=== PATIENT | female | born 1985 | race Caucasian/White ===

== ENCOUNTER 2025-04-02 08:46 | Emergency (ER) | payer OTHER, SELFPAY ==
[2025-04-02 09:49] LABS: Hematocrit 38.0 % (37.0-47.0); Hemoglobin 12.8 g/dL (12.0-16.0); Mean Corp Hgb Conc. 33.7 g/dL (33.0-37.0); Mean Corpuscular Volume 90.7 fL (81.0-99.0); Nucleated Red Blood Cells % 0 %; Platelet Count 267 10^3/uL (130-400); Red Cell Dist. Width 12.6 % (11.5-14.5); Urine Character Clear (Clear)
[2025-04-02 09:57] LABS: Urine Red Blood Cell 0-2 /HPF (0-2); Urine Squamous Cell >30 /LPF (Few); Urine White Cell 0-2 /HPF (0-5)
[2025-04-02 10:00] VITALS: BP 134/84
[2025-04-02] MEDS: NSS 1000 IV (10:20)
[2025-04-02] MEDS: TORADOL 15 MG IV (10:27)
[2025-04-02] MEDS: XANAX 0.5 MG PO (10:27)
--- NOTE | 2025-04-02 10:42 | ED.GENMED ---
History of Present Illness
<Laurita Montelongo PA-C - Last Filed: 04/02/25 14:33>
General
Chief Complaint: Flank Pain
Source: patient
Exam Limitations: none
Time Seen by Provider: 04/02/25 09:26
Nursing documentation reviewed up to this point in time: agreed with
History of Present Illness
History of Present Illness:
see MDM
Phy Exam
<Laurita Montelongo PA-C - Last Filed: 04/02/25 14:33>
Physical Exam
Physical Exam:
see MDM
Course
<Laurita Montelongo PA-C - Last Filed: 04/02/25 14:33>
Orders/Labs/Results
Orders:
Orders
04/02/25 09:33
Test Result ONCE
04/02/25 09:40
Complete Blood Count/With Diff Urgent
Urinalysis Reflex To Culture Urgent
Date Specimen was Collected: 04/02/25
Time Specimen was Collected: 09:33
Urine Microscopic Reflex Cult Urgent
04/02/25 09:47
CT Abd/pel Without Iv Or Oral Urgent
Comment:
Reason For Exam: L flankp ain
0.9% Sodium Chloride 1000 ml [Nss] 1,000 ml IV BOLUS
04/02/25 10:21
Alprazolam [Xanax] 0.5 mg PO NOW STA
Ketorolac [Toradol] 15 mg IV NOW STA
04/02/25 10:30
Comprehensive Metabolic Panel Urgent
HCG, Serum Qualitative Screen Urgent
Lipase Urgent
04/02/25 12:43
Lactic Acid Urgent
Abnormal Lab Results
04/02/25 04/02/25
09:40 12:43
RBC 4.19 L 10^6/uL
(4.20-5.40)
Lactic Acid 0.6 L mmol/L
(0.7-2.0)
Ur Occult Blood Reflex 1+ A
(Negative)
Urine Bacteria (Reflex) Few A
(Negative)
04/02/25 09:40
04/02/25 10:30
Vital Signs
Initial and Last Documented VS:
Initial Vital Signs
Pulse Resp Pulse Ox
86 20 98
04/02/25 08:53 04/02/25 08:53 04/02/25 08:53
Last Documented Vital Signs
Pulse Resp BP Pulse Ox
87 17 124/76 98
04/02/25 14:06 04/02/25 14:06 04/02/25 14:06 04/02/25 14:06
<Lewis Nelson MD - Last Filed: 04/02/25 16:22>
Orders/Labs/Results
Orders:
Orders
04/02/25 09:33
Test Result ONCE
04/02/25 09:40
Complete Blood Count/With Diff Urgent
Urinalysis Reflex To Culture Urgent
Date Specimen was Collected: 04/02/25
Time Specimen was Collected: 09:33
Urine Microscopic Reflex Cult Urgent
04/02/25 09:47
CT Abd/pel Without Iv Or Oral Urgent
Comment:
Reason For Exam: L flankp ain
0.9% Sodium Chloride 1000 ml [Nss] 1,000 ml IV BOLUS
04/02/25 10:21
Alprazolam [Xanax] 0.5 mg PO NOW STA
Ketorolac [Toradol] 15 mg IV NOW STA
04/02/25 10:30
Comprehensive Metabolic Panel Urgent
HCG, Serum Qualitative Screen Urgent
Lipase Urgent
04/02/25 12:43
Lactic Acid Urgent
Abnormal Lab Results
04/02/25 04/02/25
09:40 12:43
RBC 4.19 L 10^6/uL
(4.20-5.40)
Lactic Acid 0.6 L mmol/L
(0.7-2.0)
Ur Occult Blood Reflex 1+ A
(Negative)
Urine Bacteria (Reflex) Few A
(Negative)
04/02/25 09:40
04/02/25 10:30
Vital Signs
Initial and Last Documented VS:
Initial Vital Signs
Pulse Resp Pulse Ox
86 20 98
04/02/25 08:53 04/02/25 08:53 04/02/25 08:53
Last Documented Vital Signs
Pulse Resp BP Pulse Ox
87 17 124/76 98
04/02/25 14:06 04/02/25 14:06 04/02/25 14:06 04/02/25 14:06
<Laurita Montelongo PA-C - Last Filed: 04/02/25 14:33>
MDM/Problems Addressed
Differential Diagnosis Includes:
see MDM
MDM/Problems Addressed:
Note:
CHIEF COMPLAINT(S)
Abdominal pain
HISTORY OF PRESENT ILLNESS
The patient is a 39-year-old female who presented with acute onset of abdominal pain that started this morning around 7:00 AM. The pain was severe enough to interfere with her attempt to leave for work, which involves long shifts. The pain has been
described as a sharp, cramping pain that initially was severe but improved somewhat when she lay down, reducing the pressure sensation. She noted that positioning seemed to affect the intensity of the pain, with less discomfort when lying down.
She reports the pain is waxing and waning but had enough relief from once doses of dcri-zvo-[id number] ibuprofen 400 mg this morning. The patient describes the pain as a 7 out of 10 in severity at onset, now lesser but persistent with some intermittent
pressing sensation. She denies any urinary symptoms such as dysuria or frequency and denies any history of kidney stones.
The patient mentioned a complex past surgical history, including a remote appendectomy and then an internal hernia and bowel obstruction in 2017, . These were performed at a hospital in [place].
she does have mild chronic back pain from a fall last year
The patients symptoms, combined with the described history, could suggest a renal etiology such as a kidney stone, but she also acknowledges experiencing potential musculoskeletal pain or possibly trapped gas, and CT imaging is planned to further
investigate.
PAST MEDICAL AND SURGICAL HISTORY
1. History of bowel obstruction requiring bowel resection
2. Appendectomy
3. Incarcerated hernia repair
SOCIAL HISTORY
Patient is employed in a job that requires long shifts, indicating potential stress related to prolonged working hours.
REVIEW OF SYSTEMS
- Gastrointestinal: Sharp abdominal pain, easing with position change
- Urinary: Denies dysuria, frequency, or previous history of kidney stones
- Musculoskeletal: History of bone bruising and concussion from a fall
PHYSICAL EXAM
GENERAL: Alert , in no apparent distress, comfortable at rest
HEAD: NCAT
NECK: no midline tenderness, active ROM intact, no paraspinal muscle tenderness;
CARDIAC: Regular rate and rhythm, no edema
LUNGS: Clear breath sounds bilaterally, no acute respiratory distress, no wheezes/rales/rhonchi
ABDOMEN: Soft, without focal tenderness, no r/g, no cvat, normal bowel sounds, nondistended
holding L back but can change positions
no abd tenderness
NEUROLOGICAL: Alert and oriented, no focal neuro deficits, CN intact, 5/5 strength, sensation intact, ambulates normally
SKIN: Warm and dry,
MUSCULOSKELETAL: N no hip tenderness
Back: No midline tenderness, no redness/rash, no CVA tenderness no swelling
negative straight leg raise Bilaterally
PSYCH: Normal and appropriate interaction.
Nursing notes reviewed and vital signs reviewed.
PROBLEM LIST
Acute:
- Abdominal pain, considering differential possibilities
PLAN
1. Obtain a non-contrast CT scan of the abdomen to evaluate for kidney stones and assess bowel condition.
2. Urinalysis to rule out infection or hematuria.
3. Continue current pain management with ibuprofen, patient to request further analgesia if necessary.
4. Initiate intravenous fluid therapy to aid possible renal stone passage.
5. Monitor patients response to treatment and reassess symptomatology with test results.
6. Await results of blood work previously drawn.
DIFFERENTIAL DIAGNOSIS
The Differential Diagnosis includes, in no particular order and is not limited to:
1. Kidney stone
2. Musculoskeletal spasm
3. Bowel obstruction
4. Gas entrapment
5. Gallbladder pathology
6. Peptic ulcer disease
7. Pancreatitis
8. Ureteral or urinary tract infection
9. Incarcerated hernia reoccurrence
10. Gastrointestinal tract perforation
04/02/25 - 12:41
L back pain, positional, better with pressure since this morning
no diarrhea, no fever, no abd pain, no rash, no urinary symptoms
Patient is presenting with L back pain which is atraumatic but feels better with pressure and possible mild colitis, indicated by mild bowel wall thickening on imaging, but currently denies diarrhea or fever. Blood work indicates slight dehydration
but is otherwise unremarkable. There is no evidence of bowel obstruction, kidney stones, or infections. The patients pain may be musculoskeletal in nature, potentially linked to stress or a recent divorce. Pain management plan includes ibuprofen,
Tylenol, a heating pad, and a light diet. The patient should monitor for potential rash indicating shingles and is advised to follow up as an outpatient for further evaluation, possibly including a colonoscopy or MRI if symptoms persist. The patient
was reassured by normal current test results, but was informed of the possibility that further symptoms may develop, necessitating additional evaluation. The patient expressed interest in pursuing physical therapy and potential further imaging like
an MRI for ongoing shoulder discomfort.
lactic normal
d/c home
<Laurita Montelongo PA-C - Last Filed: 04/02/25 14:33>
*Pulse Oximetry
SaO2: 98
Oxygen Mode of Delivery: Room air
Patient hypoxic: no (98)
*Critical Care Note
Total Time (30-74mins, 75-104mins- exclusive of procedures): Not Applicable
ED Attending Note
<Laurita Montelongo PA-C - Last Filed: 04/02/25 14:33>
-
Portions of this chart may have been created with voice recognition software.� Occasional wrong word or��sound alike� substitutions may have occurred due to the inherent limitations of voice recognition software.
<Lewis Nelson MD - Last Filed: 04/02/25 16:22>
ED Attending Note
Patient seen and examined by attending physician: Yes
ED Attending Note:
Pt with ongoing right shoulder/neck/back pain since trauma from mechanical fall earlier this year, presents to ED secondary to sudden onset of sharp pain in her right lower back. Denies fever/chills. Denies nausea/vomiting. Denies direct trauma.
Denies urinary/bowel incontinence. Pt states that she currently works at [employer] job where she sits approx 14hrs, which is likely contributing to her ongoing back pain. Pt does report having received MRI spine after initial fall which only showed
arthritis. Pt has been treated by chiropractor on multiple occasions without improvement. As such, she has not received any therapy for over one month. Pt does report working in the [employer] for long time 2 days ago, including raking leaves. Denies
loss of sensation/weakness. Pt states that her back does feel worse with certain movements and improved with deep compression/massaging
General: well nourished female, in no acute distress. afebrile
Heent: nc/at. eomi
Lungs: CTA
Heart: rrr. no murmur
Abd: soft, nontender. no distention
Back: no midline tenderness/ecchymosis/erythema/swelling
Neuro: aao x 3. no focal neurological deficit. normal gait.
Skin: warm to touch. no rash.
Psych: pleasant and cooperative
Pt with an unremarkable workup, including blood work and CT abd/pel. History and exam consistent with likely musculoskeletal pain, due to underlying disc disease worsened by trauma earlier this year, exacerbated by prolonged sitting at work.
Otherwise, patient is afebrile, hemodynamically stable, and without any exam findings concerning for cauda quina syndrome. Pt will be discharged home in stable condition and will be referred to pcp/orthopaedic surgeon for re-evaluation, including
potential MRI as outpatient, if symptoms persist
Discharge Plan
Departure
Patient Disposition: Home (Routine Discharge)
Date of Disposition: 04/02/25
Time of Disposition: 13:24
Patient with high blood pressure during this ER visit?: No
Condition: Fair
Covid-19: Not Applicable
Discharge Problem:
Back pain
Instructions: Flank Pain (DC)
Referrals:
[facility] [Provider Group] - Follow up in 1 week
Brendon Lipscomb MD [Active, Orthopedics] - Follow up in 1 week
NONE,* [Family Provider, Internal Medicine]
Activity Restrictions/Additional Instructions:
Were not sure the cause of your back pain. It is probably muscular although you did have subtle finding on your CAT scan of some inflamed portion of your descending colon though this could really be more of an over read and not clinically relevant
since you are not having diarrhea or abdominal pain. It is probably muscular. Continue ibuprofen and Tylenol alternating every 3 hours for the next 2 days. Heat off-and-on. Watch for rash on your back and return or see your doctor if so. Also
return for fever, worsening abdominal pain, severe or bloody diarrhea etc.
Interventions
Interventions:
*Risk Screen - Suicide Last Done: 04/02/25 08:58
*General Assessment Last Done: 04/02/25 14:06
*Neglect/Abuse Screening Last Done: 04/02/25 08:58
*ED- Fall Risk Assessment Last Done: 04/02/25 14:06
*ED COVID-19 Vaccine History Last Done: 04/02/25 08:59
*ED Influenza Vaccine History Last Done: 04/02/25 08:59
*Nursing Disposition Last Done: 04/02/25 14:06
TP-Tisnrn-Icltgsbaes Assessment Last Done: 04/02/25 09:45
ED-Female Genitourinary Assessment Last Done: 04/02/25 09:45
Discharge Date and Time
Discharge Date/Time: 04/02/25 14:09
Print Language: [id number]
[2025-04-02 10:49] LABS: HCG, Serum Qualitative Screen Negative
[2025-04-02 11:02] LABS: ALT (SGPT) 18 U/L (0-35); AST (SGOT) 22 U/L (14-36); Albumin 3.9 g/dl (3.5-5.0); Alkaline Phosphatase 49 U/L (38-126); Blood Urea Nitrogen 15 mg/dl (7-17); Calcium 8.7 mg/dl (8.4-10.2); Carbon Dioxide 25 mmol/L (22-30); Chloride 107 mmol/L (98-107); Glucose 92 mg/dl (70-99); Lipase 57 U/L (23-300); Potassium 4.2 mmol/L (3.5-5.1); Sodium 138 mmol/L (135-145); Total Protein 6.4 g/dl (6.3-8.2); eGFR > 60.00
[2025-04-02 14:06] VITALS: BP 124/76
== END 2025-04-02 14:09 | disposition home or self-care (01) ==
LOC: EMR 08:46
PROVIDERS: Physician Assistant; EMERGENCY PHYSICIAN Emergency Medicine
DX: M54.9 Dorsalgia, unspecified (principal); G89.21 Chronic pain due to trauma; E86.0 Dehydration; M47.819 Spondylosis without myelopathy or radiculopathy, site unspecified
CPT/HCPCS: 99284; 96374; 96361; 74176; 80053; 81003; 81015; 83605; 83690; 84703; 85025